=== PATIENT | male | born 1995 | race Two or more races ===

== ENCOUNTER 2023-10-17 00:57 | Emergency (ER) | payer OTHER ==
[~2023-10-17] VITALS: Ht 167.6 cm; Wt 81.8 kg
[2023-10-17 01:53] LABS: BASOPHILS % (AUTO) 0.2 % (0.0-2.0); EOSINOPHILS % (AUTO) 1.7 % (1.0-6.0); HEMATOCRIT 41.1 % (41-53); HEMOGLOBIN 13.9 g/dL (13.5-17.5); LYMPHOCYTES # (AUTO) 0.6 K/uL (1.0-4.8); MEAN CORPUSCULAR HEMOGLOBIN 29.1 pg (26.0-34.0); MEAN CORPUSCULAR HGB CONC 33.7 G/dL (31.0-37.0); MEAN CORPUSCULAR VOLUME 86 fL (80-100); MONOCYTES # (AUTO) 0.6 K/uL (0.1-1.0); MONOCYTES % (AUTO) 6.6 % (2.0-9.0); NEUTROPHILS # (AUTO) 8.2 K/uL (1.8-7.7); PLATELET COUNT (AUTO) 199 K/uL (150-450); RED BLOOD CELL COUNT(AUTO) 4.77 MIL/uL (4.50-5.90); WHITE BLOOD COUNT (AUTO) 9.6 K/uL (4.5-11.0)
[2023-10-17 01:55] LABS: NEUTROPHILS % (AUTO) 85.5 % (40.0-70.0)
[2023-10-17] MEDS: SODIUM CHLORIDE 0.9% 1,000 ML IV ONE (02:00)
[2023-10-17 02:03] LABS: ANION GAP 8 mmol/L (8-16); CALCIUM, TOTAL 8.2 mg/dL (8.8-10.5); CARBON DIOXIDE 28 mmol/L (22-29); CHLORIDE 105 mmol/L (98-107); CREATININE 1.15 mg/dL (0.60-1.30); GLOMERULAR FILTR. RATE CALC > 60 mL/min (>60); GLUCOSE,RANDOM 98 mg/dL (70-110); POTASSIUM 4.2 mmol/L (3.5-5.1); SODIUM SERUM 141 mmol/L (136-145); UREA NITROGEN, BLOOD 33 mg/dL (7-18)
[2023-10-17 02:09] LABS: ALANINE AMINOTRANSFERASE 65 U/L (12-78); ALBUMIN 3.5 g/dL (3.4-5.0); ALKALINE PHOSPHATASE 60 U/L (46-116); ASPARTATE AMINOTRANSFERASE 67 U/L (15-37); BILIRUBIN,TOTAL 0.4 mg/dL (0.1-1.0); LIPASE 33 U/L (16-77); TOTAL PROTEIN, SERUM 7.1 g/dL (6.4-8.2)
[2023-10-17] MEDS: METOCLOPRAMIDE HCL 5 MG/ML 2 ML VIAL IVP ONE (02:16)
[2023-10-17 05:25] LABS: APPEARANCE,URINE CLEAR (CLEAR); BILIRUBIN,URINE NEGATIVE (NEGATIVE); COLOR,URINE YELLOW (YELLOW); GLUCOSE, URINE (UA) NEGATIVE (NEGATIVE); LEUKOCYTE ESTERASE ,URINE NEGATIVE (NEGATIVE); NITRATE,URINE NEGATIVE (NEGATIVE); OCCULT BLOOD,URINE NEGATIVE (NEGATIVE); PROTEIN,URINE TRACE mg/dL (NEGATIVE); SPECIFIC GRAVITIY, URINE 1.036 (1.003-1.030); UROBILINOGEN,URINE <=1.0 mg/dL (<=1.0)
[2023-10-17 05:30] LABS: COVID AG,FIA SOURCE NASAL SWAB
[2023-10-17 05:32] LABS: ALCOHOL, URINE DRUG SCREEN NEGATIVE (NEGATIVE); AMPHET/METH SCREEN,URINE NEGATIVE (NEGATIVE); BARBITURATE SCREEN, URINE NEGATIVE (NEGATIVE); BENZODIAZEPINES SCREEN,URINE NEGATIVE (NEGATIVE); CANNABINOID SCREEN,URINE NEGATIVE (NEGATIVE); COCAINE SCREEN,URINE NEGATIVE (NEGATIVE); METHADONE SCREEN, URINE NEGATIVE (NEGATIVE); OPIATE SCREEN,URINE NEGATIVE (NEGATIVE); PHENCYCLIDINE SCREEN,URINE NEGATIVE (NEGATIVE)
[2023-10-17 05:40] LABS: SARS-COV2 (COVID) ANTIGEN,FIA Negative (Negative)
[2023-10-17 05:41] LABS: INFLUENZA TYPE A NEGATIVE FOR TYPE A (NEGATIVE); INFLUENZA TYPE B NEGATIVE FOR TYPE B (NEGATIVE)
[2023-10-17] MEDS: ACETAMINOPHEN 325 MG TABLET PO ONE (07:26)
[2023-10-17 08:41] VITALS: BP 104/59; PULSE 71; RESP 16; TEMP 99.3
[2023-10-17] MEDS ORDERED: ACET-3385 PO (09:01)
[2023-10-17] MEDS ORDERED: ONDA-104 PO (09:01)
== END 2023-10-17 09:32 | disposition home or self-care (01) ==
LOC: EMS 00:57
DX: R10.13 Epigastric pain (principal); R11.2 Nausea with vomiting, unspecified; Z20.822 Contact with and (suspected) exposure to COVID-19
CPT/HCPCS: 99285; 74176; 96374; 76705; 96361; 87426; 80053; 81003; 83690; 85025; 87804; 36415; 80307; J2765; J7030; G0480

== ENCOUNTER 2023-12-01 10:07 | Emergency (ER) | payer OTHER ==
[~2023-12-01] VITALS: Ht 172.7 cm; Wt 81.8 kg
[~2023-12-01 10:07] MED LIST: ACET-3385 PO; ONDA-104 PO
[2023-12-01 10:08] VITALS: TEMP 97.8
[2023-12-01] MEDS: LIDOCAINE 1% 10 ML VIAL SQ ONE (10:53)
[2023-12-01] MEDS: CEPHALEXIN MONOHYDRATE 500 MG CAPSULE PO ONE (12:48)
[2023-12-01] MEDS ORDERED: CEPH-558 PO (12:50)
[2023-12-01] MEDS ORDERED: SULF-261 PO (12:51)
[2023-12-01] MEDS ORDERED: IBUP-1492 PO (12:57)
[2023-12-01 13:00] VITALS: BP 117/74; PULSE 73; RESP 18
== END 2023-12-01 13:06 | disposition home or self-care (01) ==
LOC: EMS 10:07
DX: L08.89 Other specified local infections of the skin and subcutaneous tissue (principal); L60.0 Ingrowing nail
CPT/HCPCS: 99284; 10160; J3490; 99283

== ENCOUNTER 2024-03-04 19:17 | Emergency (ER) | payer OTHER ==
[~2024-03-04] VITALS: Ht 177.8 cm; Wt 85.0 kg
[~2024-03-04 19:17] MED LIST changes: -ACET-3385 PO; +CEPH-558 PO; +DIPH-1243 PO; -ONDA-104 PO; +SULF-261 PO
[2024-03-04 19:24] VITALS: TEMP 98.2
[2024-03-04 20:38] LABS: BASOPHILS % (AUTO) 0.9 % (0.0-2.0); EOSINOPHILS % (AUTO) 2.7 % (1.0-6.0); HEMATOCRIT 43.8 % (41-53); HEMOGLOBIN 14.3 g/dL (13.5-17.5); LYMPHOCYTES # (AUTO) 2.1 K/uL (1.0-4.8); LYMPHOCYTES % (AUTO) 32.9 % (22.0-44.0); MEAN CORPUSCULAR HEMOGLOBIN 28.4 pg (26.0-34.0); MEAN CORPUSCULAR HGB CONC 32.6 G/dL (31.0-37.0); MEAN CORPUSCULAR VOLUME 87 fL (80-100); MONOCYTES # (AUTO) 0.6 K/uL (0.1-1.0); NEUTROPHILS # (AUTO) 3.4 K/uL (1.8-7.7); NEUTROPHILS % (AUTO) 53.5 % (40.0-70.0); PLATELET COUNT (AUTO) 216 K/uL (150-450); RED BLOOD CELL COUNT(AUTO) 5.03 MIL/uL (4.50-5.90); WHITE BLOOD COUNT (AUTO) 6.3 K/uL (4.5-11.0)
[2024-03-04 20:50] LABS: ANION GAP 3 mmol/L (8-16); CALCIUM, TOTAL 8.6 mg/dL (8.8-10.5); CARBON DIOXIDE 33 mmol/L (22-29); CHLORIDE 104 mmol/L (98-107); CREATININE 1.35 mg/dL (0.60-1.30); GLOMERULAR FILTR. RATE CALC > 60 mL/min (>60); GLUCOSE,RANDOM 95 mg/dL (70-110); POTASSIUM 3.9 mmol/L (3.5-5.1); SODIUM SERUM 140 mmol/L (136-145); UREA NITROGEN, BLOOD 18 mg/dL (7-18)
[2024-03-04 21:33] VITALS: BP 121/70; PULSE 63; RESP 18
[2024-03-04] MEDS ORDERED: DIPH28.34 TP (22:23)
[2024-03-04] MEDS ORDERED: HYDR30CR39 TP (22:23)
== END 2024-03-04 22:40 | disposition home or self-care (01) ==
LOC: EMS 19:17
DX: L30.9 Dermatitis, unspecified (principal); F17.210 Nicotine dependence, cigarettes, uncomplicated
CPT/HCPCS: 80048; 85025; 99283

== ENCOUNTER 2024-04-26 23:50 | Emergency (ER) | payer OTHER ==
[~2024-04-26] VITALS: Ht 177.8 cm; Wt 100.5 kg
[~2024-04-26 23:50] MED LIST changes: +DIPH28.34 TP; +HYDR30CR39 TP
[2024-04-27 00:18] VITALS: BP 110/86; PULSE 68; RESP 18; TEMP 99.1; O2SAT 96
[2024-04-27] MEDS ORDERED: CLOT15CR29 TP (01:06)
[2024-04-27] MEDS ORDERED: CLIN-142 PO (01:06)
[2024-04-27] MEDS: CLINDAMYCIN PHOS 150 MG/ML 4 ML VIAL IM ONE (01:31)
== END 2024-04-27 01:46 | disposition home or self-care (01) ==
LOC: EMS 23:50
DX: B35.6 Tinea cruris (principal); F17.210 Nicotine dependence, cigarettes, uncomplicated
CPT/HCPCS: 99283; 96372; J3490

== ENCOUNTER 2024-08-07 07:37 | Emergency (ER) | payer MEDICAID, OTHER ==
[~2024-08-07] VITALS: Ht 175.3 cm; Wt 86.4 kg
[~2024-08-07 07:37] MED LIST changes: +CLIN-142 PO; +CLOT15CR29 TP
[2024-08-07 07:42] VITALS: BP 137/66; PULSE 80; RESP 18; TEMP 98.4; O2SAT 100
[2024-08-07 07:54] LABS: COVID AG,FIA SOURCE NASAL SWAB
[2024-08-07 08:25] LABS: RAPID GROUP A STREP NEGATIVE (NEGATIVE)
[2024-08-07 08:31] LABS: INFLUENZA TYPE A NEGATIVE FOR TYPE A (NEGATIVE); INFLUENZA TYPE B NEGATIVE FOR TYPE B (NEGATIVE); SARS-COV2 (COVID) ANTIGEN,FIA Negative (Negative)
[2024-08-07] MEDS: ACETAMINOPHEN 325 MG TABLET PO ONE (09:27)
[2024-08-07] MEDS: IBUPROFEN 400 MG TABLET PO ONE (09:27)
== END 2024-08-07 09:35 | disposition home or self-care (01) ==
LOC: EMS 08:03
DX: J02.9 Acute pharyngitis, unspecified (principal); B97.89 Other viral agents as the cause of diseases classified elsewhere; F17.210 Nicotine dependence, cigarettes, uncomplicated; Z20.822 Contact with and (suspected) exposure to COVID-19
CPT/HCPCS: 87430; 87804; 99283

== ENCOUNTER 2024-08-21 00:26 | Emergency (ER) | payer OTHER ==
[~2024-08-21] VITALS: Ht 170.2 cm; Wt 112.0 kg
[2024-08-21 00:44] VITALS: TEMP 98.2
[2024-08-21] MEDS: PERTUSS(ACELL),DIPH,TET/PF 0.5 ML SYRINGE [ADULT] IM. ONE (03:50)
[2024-08-21 04:11] VITALS: BP 136/80; PULSE 86; RESP 14; O2SAT 100
== END 2024-08-21 04:14 | disposition home or self-care (01) ==
LOC: EMS 00:26
DX: S61.112A Laceration without foreign body of left thumb with damage to nail, initial encounter (principal); F17.210 Nicotine dependence, cigarettes, uncomplicated; W26.0XXA Contact with knife, initial encounter; Y93.89 Activity, other specified; Y92.89 Other specified places as the place of occurrence of the external cause; Y99.0 Civilian activity done for income or pay
CPT/HCPCS: 90471; 90715; 99283